=== PATIENT | male | born 1965 | race Caucasian/White ===

== ENCOUNTER 2020-02-01 17:08 | Emergency (ER) | payer MEDICARE, SELFPAY ==
[2020-02-01 17:21] VITALS: BP 162/87; PULSE 89; RESP 18; TEMP 37.1; O2SAT 98
--- NOTE | 2020-02-01 17:41 | ED.EAR ---
HPI - Ear Problem General Chief complaint: Ear Stated complaint: ear pain Time Seen by Provider: 02/01/20 17:31 Source: patient and RN notes reviewed Mode of arrival: ambulatory Limitations: no limitations History of Present Illness HPI Narrative: Patient presents today complaining of a heartbeat sound in his left ear x2 days with mild discomfort. He describes the sensation as a boom boom boom. He does reports issues with sinuses this time of year, but does not take any medications for his allergies. Reports hx of similar symptoms in the past. Denies pain in the ear. Related Data Home Medications Medication Instructions Recorded Confirmed aspirin 81 mg PO DAILY 02/01/20 02/01/20 diltiazem HCl 120 mg PO DAILY 02/01/20 02/01/20 levalbuterol tartrate [Xopenex HFA] 2 inh INHALATION Q6H 02/01/20 02/01/20 losartan-hydrochlorothiazide 1 tablet PO DAILY 02/01/20 02/01/20 metformin 750 mg PO DAILY 02/01/20 02/01/20 pravastatin 20 mg PO DAILY 02/01/20 02/01/20 Allergies Allergy/AdvReac Type Severity Reaction Status Date / Time simvastatin Allergy Unknown Verified 01/05/15 14:46 Review of Systems Review of Systems: Narrative: CONSTITUTIONAL: Denies body aches, fever, chills, or sweats. EYES: Denies visual changes, redness, or discharge. ENT: Denies rhinorrhea, congestion, sore throat, or otalgia. +left ear pulsation CARDIOVASCULAR: Denies chest pain, palpitations, or edema. RESPIRATORY: Denies cough or dyspnea. GASTROINTESTINAL: Denies abdominal pain, nausea, vomiting, or diarrhea. GENITOURINARY: Denies dysuria or hematuria. SKIN: Denies rash, itching, or wounds. MUSCULOSKELETAL: Denies back pain, joint pain, or myalgia. NEUROLOGIC: Denies headache, numbness, tingling, or weakness. PSYCH: Denies depression or anxiety. [facility] Past Medical History Medical History (Updated 02/01/20 @ 18:15 by Miriam Tobar, [employer], ) Atrial fibrillation Hypertension Family History Family History (Updated 02/08/11 @ 15:30 by DOCTOR UNKNOWN) Other Diabetes mellitus Family history of arthritis Family history of cardiovascular disease Hypertension Social History Social History Smoking status: Never smoker Alcohol intake: current Comments At time of signature, I have reviewed and agree with nursing past medical, surgical, social and family history unless otherwise noted. Please see nursing chart for further information. There is no relevant family history pertinent to the presenting complaint Exam Narrative: Exam Narrative: GENERAL: Well-appearing, well-nourished, and in no acute distress. HEAD: Normocephalic, atraumatic. EYES: EOMI. No redness or drainage. Conjunctivae normal. ENT: Mucous membranes pink and moist. Nares clear. No rhinorrhea. TMs normal bilaterally. Small amount of fluid behind the left TM. NECK: Normal AROM. Supple. No lymphadenopathy. CHEST: No respiratory distress. EXTREMITIES: Normal range of motion. No edema. SKIN: Warm, dry, no rash. Capillary refill normal. Normal skin turgor. NEURO: No focal deficits. Alert and oriented x3. Gait steady. PSYCH: Normal affect. No signs of depression or anxiety. Course Vital Signs Vital signs: Vital Signs Temperature 98.7 F 02/01/20 17:21 Pulse Rate 89 02/01/20 17:21 Respiratory Rate 18 02/01/20 17:21 Blood Pressure 162/87 H 02/01/20 17:21 Pulse Oximetry 98 02/01/20 17:21 Temperature 98.7 F 02/01/20 17:21 Pulse Rate 89 02/01/20 17:21 Respiratory Rate 18 02/01/20 17:21 Blood Pressure 162/87 H 02/01/20 17:21 Pulse Oximetry 98 02/01/20 17:21 Reviewed. Pt has been instructed to follow up with his PCP regarding his elevated blood pressure today. Medical Decision Making Differential Diagnosis Differential Diagnosis: Otitis media, otitis externa, ruptured TM, serous otitis, eustachian tube dysfunction, cerumen impaction Medical Records Medical records reviewed: Yes I reviewed the patient's medical rec
== END 2020-02-01 17:43 | disposition home or self-care (01) ==
PROVIDERS: Emergency Provider Nurse Practitioner; PCP Family Medicine
DX: H65.02 Acute serous otitis media, left ear (principal); I10 Essential (primary) hypertension
CPT/HCPCS: 99201; G0463

== ENCOUNTER → 2021-01-30 02:25 | Outpatient (CLI) | payer MEDICARE, SELFPAY ==
[2021-01-30 18:15] LABS: SARS-CoV-2 RNA PCR Negative
== END ==
PROVIDERS: Visit Provider Internal Medicine Gastroenterology
DX: Z01.812 Encounter for preprocedural laboratory examination (principal); Z20.822 Contact with and (suspected) exposure to COVID-19
CPT/HCPCS: C9803; U0003; U0005

== ENCOUNTER 2021-02-02 01:26 | Day surgery (SDC) | payer MEDICARE, SELFPAY ==
[2021-01-20 15:24] VITALS: BMI 38.3
[2021-02-02 06:26] VITALS: BP 146/78; PULSE 75; RESP 18; TEMP 36.7; O2SAT 99
[2021-02-02] MEDS: LACTATED RINGERS 1,000 ML 150 ML IV CONT (06:37)
[2021-02-02 06:43] LABS: Glucose Point of Care 124 mg/dl (65-105)
--- NOTE | 2021-02-02 06:49 | WPDANESEPPF ---
Anes - Initial Pre Proc Eval Procedure: Operation Date: 02/02/21 07:30 Proposed Procedures p Screening Colonoscopy - Chris Regan MD Date/Time: 02/02/21 06:49 Surgeon: Chris eRgan MD Pre Op Diagnosis: neoplasm screening Patient Data Age: 55 Gender: M Height: 5 ft 7 in Weight: 112 kg Last Vital Signs Temp 36.7 C 02/02/21 06:26 Pulse 75 02/02/21 06:26 Resp 18 02/02/21 06:26 BP 146/78 H 02/02/21 06:26 Pulse Ox 99 02/02/21 06:26 Allergies Allergy/AdvReac Type Severity Reaction Status Date / Time simvastatin AdvReac Unknown Headache Verified 02/02/21 06:25 amlodipine AdvReac Swelling Verified 02/02/21 06:25 Home Medications Medication Instructions Recorded Confirmed Type aspirin 81 mg PO DAILY 02/01/20 02/02/21 History levalbuterol tartrate [Xopenex HFA] 2 inh INHALATION Q6H PRN 02/01/20 02/02/21 History losartan-hydrochlorothiazide 1 tablet PO DAILY 02/01/20 02/02/21 History atorvastatin 40 mg PO HS 01/20/21 02/02/21 History ibuprofen 800 mg PO BID PRN 01/20/21 02/02/21 History metoprolol succinate 100 mg PO DAILY 01/20/21 02/02/21 History omeprazole 40 mg PO DAILY 01/20/21 02/02/21 History sitagliptin-metformin [Janumet] 1 tablet PO BID 01/20/21 02/02/21 History Laboratory Tests 02/02/21 06:40 POC Capillary Glucose 124 mg/dl H mg/dl (65-105) Patient hx anesthesia problems: none Family hx anesthesia problems: none PMFSH Past Medical History Medical History (Updated 02/02/21 @ 06:49 by Yonis Fairchild MD) Atrial fibrillation Diabetes Hypertension Morbid obesity BREANA (obstructive sleep apnea) Surgical History Surgical History (Updated 02/02/21 @ 06:50 by Yonis Fairchild MD) H/O hernia repair Family History Family History Other Diabetes mellitus Family history of arthritis Family history of cardiovascular disease Hypertension Social History Social History Smoking status: Never smoker Alcohol intake: current Living arrangements: with family Spiritual care concerns: No Anes - Eval Final PreProcedure Day of Procedure 02/02/21 06:49 Patient weight: morbidly obese Heart: regular rate and rhythm Lungs: clear to auscultation Airway: Mallampati scale class II Neurological: alert and oriented Last oral intake: >/= 8 hours ASA classification: III Emergent: no Anesthetic plan: proceed Anesthesia type and monitoring: general GIVS and standard monitoring Informed Consent: The patient's anesthetic plan and its attendant risks and benefits were discussed with the patient/family/POA. Questions were solicited and answers provided to the satisfaction of the patient/family/POA.
--- NOTE | 2021-02-02 07:50 | WPDGICN ---
Assessment and Plan Assessment and plan (1) Encounter for screening colonoscopy: Code(s): Z12.11 - Encounter for screening for malignant neoplasm of colon Status: Acute Assessment and Plan: patient presents for screening colonoscopy. His current weight appetite bowel movements are normal. He appears to be at average risk for colon polyps. Further recommendations will be given after endoscopy. (2) Umbilical hernia: Code(s): K42.9 - Umbilical hernia without obstruction or gangrene Status: Acute Assessment and Plan: Patient seen by surgery. A surgical repair of hernia anticipated. GI Consult Note Consult date/time: 02/02/21 07:50 HPI: Koko Gonzalez is a 55 year old male Presents for screening colonoscopy. Patient states that his current weight appetite bowel movements are normal. He denies any blood in his stools. His family history is noncontributory. He has never had a colonoscopy previously. Recently diagnosed with umbilical hernia. He is considering surgical repair. Review of Systems Review of Systems: All systems reviewed & are unremarkable except as noted in HPI and below PMFSH Past Medical History Medical History Atrial fibrillation Diabetes Hypertension Morbid obesity BREANA (obstructive sleep apnea) Surgical History Surgical History (Updated 02/02/21 @ 06:50 by Yonis Fairchild MD) H/O hernia repair Family History Family History Other Diabetes mellitus Family history of arthritis Family history of cardiovascular disease Hypertension Social History Social History Smoking status: Never smoker Alcohol intake: current Living arrangements: with family Spiritual care concerns: No Meds Home Medications and Allergies Home Medications Medication Instructions Recorded Confirmed Type aspirin 81 mg PO DAILY 02/01/20 02/02/21 History levalbuterol tartrate [Xopenex HFA] 2 inh INHALATION Q6H PRN 02/01/20 02/02/21 History losartan-hydrochlorothiazide 1 tablet PO DAILY 02/01/20 02/02/21 History atorvastatin 40 mg PO HS 01/20/21 02/02/21 History ibuprofen 800 mg PO BID PRN 01/20/21 02/02/21 History metoprolol succinate 100 mg PO DAILY 01/20/21 02/02/21 History omeprazole 40 mg PO DAILY 01/20/21 02/02/21 History sitagliptin-metformin [Janumet] 1 tablet PO BID 01/20/21 02/02/21 History Allergies Allergy/AdvReac Type Severity Reaction Status Date / Time simvastatin AdvReac Unknown Headache Verified 02/02/21 06:25 amlodipine AdvReac Swelling Verified 02/02/21 06:25 Vital Signs Vital Signs - 24 hr 02/02/21 06:26 Temperature 98.0 F Pulse Rate 75 Respiratory Rate 18 Blood Pressure 146/78 H Pulse Oximetry 99 Exam Narrative: Exam Narrative: Physical exam reveals patient be alert. Vital signs stable. HEENT exam is unremarkable. Patient is anicteric. Lungs are clear to auscultation and percussion. Heart is without murmur or extra sounds. Abdomen is modestly obese. Bowel sounds are present soft nontender small umbilical hernia is evident. Extremities are without clubbing cyanosis or edema
[2021-02-02 07:53] VITALS: BP 113/66; PULSE 85; RESP 22; O2SAT 98
[2021-02-02 08:03] VITALS: BP 120/71; PULSE 77; RESP 16; O2SAT 97
[2021-02-02 08:13] VITALS: BP 132/87; PULSE 74; RESP 20; O2SAT 99
== END 2021-02-02 08:27 | disposition home or self-care (01) ==
PROVIDERS: Visit Provider Internal Medicine Gastroenterology
PROC: 0DJD8ZZ Inspection of Lower Intestinal Tract, Via Natural or Artificial Opening Endoscopic (ICD-10-PCS; CPT 45378; principal; 2021-02-02 07:30)
DX: Z12.11 Encounter for screening for malignant neoplasm of colon (principal); K64.8 Other hemorrhoids; K42.9 Umbilical hernia without obstruction or gangrene; I48.91 Unspecified atrial fibrillation; E11.9 Type 2 diabetes mellitus without complications; I10 Essential (primary) hypertension; G47.33 Obstructive sleep apnea (adult) (pediatric); E66.01 Morbid (severe) obesity due to excess calories; Z68.38 Body mass index [BMI] 38.0-38.9, adult; Z79.82 Long term (current) use of aspirin; Z79.51 Long term (current) use of inhaled steroids; Z79.84 Long term (current) use of oral hypoglycemic drugs
CPT/HCPCS: G0121; 82948; C9803; J2704; J7120; U0003; U0005

== ENCOUNTER 2022-01-19 14:25 | Outpatient (CLI) | payer MEDICARE, SELFPAY ==
--- NOTE | ~2022-01-19 | XR_ITS ---
EXAMINATION: XR chest 2V 01/19/2022 15:49 INDICATION: Shortness of breath PROCEDURE: PA and lateral views of the chest COMPARISON: Comparison to multiple prior studies sequentially, with oldest reviewed study dated 05/29. FINDINGS: The lungs are clear. The cardiomediastinal silhouette is within normal limits. There are no pleural effusions. There is no pneumothorax suspected. IMPRESSION: 1: NO ACUTE CARDIOPULMONARY DISEASE. Reviewed, dictated and finalized at location A.
--- NOTE | 2022-01-22 13:19 | WPDSIXMINUTE ---
Six Minute Walk Procedure Procedure Performed Pulmonary Stress Test (6 min walk) Six Minute Walk Six Minute Walk: This 6 minute walk test was carried out with the patient breathing ambient air. The pre walk baseline oxyhemoglobin saturation was 94%. The patient walked over 304 m with no stops during testing. During the walk the oxyhemoglobin saturation was 92% or higher. The perceived dyspnea on the Malka scale was 2 at baseline and increased to 3 at the end of the test. Impression: No evidence of oxyhemoglobin saturation on this testing.
--- NOTE | 2022-01-22 13:21 | WPDPFTINT ---
PFT Procedure Performed PFT Procedure Performed Spirometry with Pre/Post Bronchodilator Plethysmography (Lung Vol) Diffusing Cap (DLCO) Flow Vol Loop PFT Interpretation Lung volumes were measured with the body plethysmography method. The diminished expiratory reserve volume is related to obesity. The remaining lung volumes are unremarkable. Spirometry showed mildly diminished expiratory flow rates and a normal FEV1 to FVC ratio 77%. Following administration of a bronchodilator there was no significant change in the expiratory flow rates. Lung diffusion capacity is within the normal range at 78% predicted. The flow volume loop is unremarkable. Overall pulmonary function testing compatible with morbid obesity. Clinical correlation advised. Impression: Nonspecific pattern. Lung diffusion capacity within normal range. Study consistent with morbid obesity.
== END 2022-01-19 14:26 | disposition home or self-care (01) ==
PROVIDERS: Visit Provider Internal Medicine Critical Care Medicine
DX: J44.9 Chronic obstructive pulmonary disease, unspecified (principal)
CPT/HCPCS: 71046; 94060; 94618; 94726; 94729

== ENCOUNTER 2022-01-22 07:37 | Outpatient (CLI) | payer MEDICARE, SELFPAY ==
--- NOTE | 2022-02-12 13:47 | WPDSLEEPSTUD ---
Sleep Study Date of Study: 01/22/22 Ordering Provider: Sadia Hamilton MD Interpreting Physician: Sadia Hamilton MD Sleep Study Type: Polysomnogram Height: 1.7 m Weight: 114.759 kg Body Mass Index: 39.6 Neck Circumference (inches): 17 Grady: 16 Reason for Sleep Study Hypersomnia Sleep History Koko Gonzalez is a 56 year old man who stops breathing at night, leaps out of bed and falls to the floor. This has happened 10 times in the last 6 months. He occasionally awakens at night feeling short of breath, rarely awakens at night with heartburn, belching or coughing. He frequently snores and occasionally this is loud enough that others complain about it. He occasionally has trouble sleeping with a cold, occasionally wakes up gasping for breath at night. He occasionally has breathing problems at night observed by others. He rarely sweats excessively at night. He occasionally notices his heart pounding or beating irregularly at night. He occasionally falls asleep during the day. He rarely falls asleep involuntarily, however on occasion he falls asleep while driving. Occasionally he has loss of muscle tone with strong emotion. He occasionally has difficulty during the daytime due to excessive sleepiness. 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 He rarely feels paralyzed on waking or falling asleep and rarely has vivid dreamlike scenes upon awakening or falling asleep. He occasionally feels afraid to go to sleep. He rarely has nightmares. He occasionally remembers his dreams. He occasionally has racing thoughts. He rarely feels sad or depressed. He occasionally has anxiety. He rarely has muscular tension. He does not notice parts of his body jerking nor does he kick at night. He rarely has crawling and aching feelings in his legs. He occasionally has leg pain during the night. He does not have morning jaw pain. He does not grind his teeth during sleep. He is not bothered by pain during the day nor awakened by pain at night. He rarely wakes up feeling stiff in the morning, rarely wakes with sore achy muscles or pain in the neck and spine. Normal bedtime is 11:00 p.m. falling asleep within 1/2 hour to 1 hour, typically waking 1-2 times at night to use the bathroom. He may stay awake for 20-30 minutes. Normal wake up time is 5:30 a.m.. On weekends, bedtime is between 10:00 p.m. and midnight, and he wakes between 7:00 am and 8:00 a.m. He estimates getting between 6-7 hours of sleep at night. In general, he does not take naps in the afternoon or evening. A short nap lasting 10-15 minutes may be refreshing. He is drowsy for 3 hours or longer on waking. He feels better in the afternoon compared to the morning. Habits: Never smoker. Caffeine, on occasion. Alcohol, on occasion. [facility] Past Medical History Medical History Atrial fibrillation Diabetes Hypertension Morbid obesity BREANA (obstructive sleep apnea) Surgical History Surgical History H/O hernia repair Family History Family History Other Diabetes mellitus Family history of arthritis Family history of cardiovascular disease Hypertension Social History Social History Smoking status: Never smoker Alcohol intake: current Spiritual care concerns: No Medications Home Medications Medication Instructions Recorded Confirmed Type aspirin 81 mg tablet,delayed 81 mg PO DAILY 02/01/20 02/02/21 History release levalbuterol tartrate 45 2 inh inhalation Q6H PRN Shortness 02/01/20 02/02/21 History mcg/actuation aerosol inhaler Of Breath (Xopenex HFA) losartan 100 1 tablet PO DAILY 02/01/20 02/02/21 History mg-hydrochlorothiazide 25 mg tablet atorvastatin 40 mg tablet 40 mg PO HS 01/20/21 02/02/21 History ibuprofen 800 mg tablet 800
[2022-02-12 15:33] VITALS: BMI 39.6
== END 2022-01-23 06:56 | disposition home or self-care (01) ==
LOC: ANHCSM 07:38
PROVIDERS: Visit Provider Internal Medicine Critical Care Medicine
DX: G47.19 Other hypersomnia (principal); G47.61 Periodic limb movement disorder; R06.83 Snoring
CPT/HCPCS: 95810